=== PATIENT | female | born 1980 | race Caucasian/White ===

== ENCOUNTER 2016-06-23 09:46 | Emergency (ER) | payer BC ==
[2016-06-23] MEDS ORDERED: DUONEB INH ONE ×2 (10:28)
== END 2016-06-23 11:07 | disposition home or self-care (01) ==
LOC: ER 09:46
DX: J20.9 Acute bronchitis, unspecified (principal); M94.0 Chondrocostal junction syndrome [Tietze]; R06.00 Dyspnea, unspecified; R05 Cough; F17.210 Nicotine dependence, cigarettes, uncomplicated
CPT/HCPCS: 71020; 94640

== ENCOUNTER 2016-06-25 14:39 | Emergency (ER) | payer BC ==
[2016-06-25] MEDS ORDERED: ACETAMINOPHEN 325 MG TAB ONE (15:48)
[2016-06-25] MEDS ORDERED: ONDANSETRON ODT 4 MG TAB ONE (15:48)
== END 2016-06-25 15:56 | disposition home or self-care (01) ==
LOC: ER 14:39
DX: F45.8 Other somatoform disorders (principal); R06.00 Dyspnea, unspecified; F17.210 Nicotine dependence, cigarettes, uncomplicated
CPT/HCPCS: 71020